=== PATIENT | female | born 1985 | race Two or more races ===

== ENCOUNTER 2024-09-06 12:31 | Emergency (ER) | payer OTHER ==
[~2024-09-06] VITALS: Ht 149.9 cm; Wt 42.2 kg
[2024-09-06] MEDS ORDERED: 0.9 % SODIUM CHLORIDE 1,000 ML IV ONE (14:45)
[2024-09-06] MEDS ORDERED: ONDANSETRON HCL 2 MG/ML VIAL IV ONE (14:45)
[2024-09-06] MEDS ORDERED: FAMOTIDINE/PF 20 MG/2 ML VIAL IV ONE (14:45)
[2024-09-06 16:14] LABS: HEMATOCRIT 40.1 % (36.0-45.00); MEAN CELL VOLUME 88.9 fL (80.00-100.00); MEAN CORPUSCULAR HEMOGLOBIN 30.9 pg (27.00-32.0); MEAN CORPUSCULAR HGB CONC 34.8 g/dl (32.0-36.0); PLATELET COUNT 239 K/uL (150-450); RED BLOOD COUNT 4.51 M/uL (4.00-6.00); RED CELL DISTRIBUTION WIDTH 13.4 % (11.5-14.5)
[2024-09-06 16:18] LABS: URINE APPEARANCE Clear; URINE BILIRRUBIN Negative (NEGATIVE); URINE BLOOD Negative; URINE COLOR Yellow; URINE GLUCOSE Negative (NEGATIVE); URINE LEUKOCYTE Negative; URINE NITRATE Negative; URINE PROTEIN Negative (NEGATIVE)
[2024-09-06 16:22] LABS: URINE BACTERIA 67.3 uL (0.0-1933); URINE EPITHELIAL CELLS 49.1 uL (0.0-38.8); URINE RBC 2.9 uL (0.0-20.8); URINE WBC 2.8 uL (0.0-23.2)
[2024-09-06 16:35] LABS: ALBUMIN 4.5 gm/dL (3.4-5.0); BILIRUBIN TOTAL 1.36 mg/dL (0.3-1.2); CALCIUM 9.1 mg/dL (8.5-10.1); CREATININE SERUM 0.77 mg/dL (0.55-1.02); GFR 83.89; GLOBULINA 3.7 G/DL (2.4-3.5); POTASSIUM 3.85 mEq/L (3.5-5.1); TOTAL PROTEIN 8.2 gm/dL (6.4-8.2)
[2024-09-06 16:54] LABS: URINE KETONE >=160 (NEGATIVE)
[2024-09-06] MEDS ORDERED: PEPCID AC20 MG PO (17:47)
[2024-09-06] MEDS ORDERED: ONDANSETRON HCL4 MG PO (17:47)
[2024-09-06] MEDS ORDERED: METOCLOPRAMIDE HCL 5 MG/ML VIAL IM ONE (19:45)
== END 2024-09-06 20:07 ==
LOC: ER 12:33
PROVIDERS: Emergency Medicine
DX: R11.2 Nausea with vomiting, unspecified (principal); Z20.822 Contact with and (suspected) exposure to COVID-19